=== PATIENT | female | born 1970 | race Caucasian/White ===

== ENCOUNTER 2020-03-16 17:37 | Emergency (ER) | payer SELFPAY ==
[~2020-03-16] VITALS: Ht 165.1 cm; Wt 65.8 kg
[2020-03-16 17:55] VITALS: Ht 165.1 cm; Wt 65.8 kg
[2020-03-16 20:24] VITALS: BP 129/85
== END 2020-03-16 20:24 | disposition home or self-care (01) ==
LOC: ED 17:37
DX: S82.831A Other fracture of upper and lower end of right fibula, initial encounter for closed fracture (principal); X50.1XXA Overexertion from prolonged static or awkward postures, initial encounter; Y93.89 Activity, other specified; Y92.89 Other specified places as the place of occurrence of the external cause; Y99.8 Other external cause status
CPT/HCPCS: Q0092